=== PATIENT | female | born 1960 | race Caucasian/White ===

== ENCOUNTER → 2018-01-16 | Outpatient (CLI) | payer BC ==
[~2018-01-16] MED LIST: CLARITIN10 MG PO; D-20002000 UNIT PO; HORMONE; HORMONE CREAM; LISINOPRIL10 MG; LISINOPRIL10 MG PO; MULTIVITAMINS PO; MULTIVITAMINS1 EAC7; OXYIR 5 MG CAPSU5 M1; PRINZIDE 10-121 EACH PO; TRAMADOL 50 MG50 MG PO; ULTRAM50 MG PO; WELLBUTRIN XL300 MG PO
== END ==
LOC: M.RAD 14:47
DX: Z12.31 Encounter for screening mammogram for malignant neoplasm of breast (principal)